=== PATIENT | female | born 1950 | race Caucasian/White ===

== ENCOUNTER 2017-07-19 14:03 | Outpatient (CLI) | payer OTHER ==
--- NOTE | 2017-07-20 15:20 | Mammography Report ---
DIGITAL SCREENING MAMMOGRAM: 07/19/2017 CLINICAL INDICATION: A 66-year-old, for screening. COMPARISON: Report of a previous mammogram 09/26/2005. Films have been purged. TECHNIQUE: Routine CC and MLO projections were obtained of the breasts. FINDINGS: The breasts demonstrate fatty replacement bilaterally. Coarse and punctate, typically benign calcifications are present. No suspicious masses, clustered microcalcifications or regions of architectural distortion are identified. IMPRESSION: BENIGN FINDINGS. RECOMMENDATION: ROUTINE ANNUAL SCREENING UNLESS OTHERWISE CLINICALLY INDICATED. BIRADS CATEGORY 2-BENIGN FINDINGS. STANDARD QUALIFYING STATEMENTS: 1. This examination was reviewed with the aid of Computer-Aided Detection (CAD). 2. A negative or benign imaging report should not delay biopsy if clinically suspicious findings are present. Consider surgical consultation if warranted. More than 5% of cancers are not identified by imaging. 3. Dense breasts may obscure an underlying neoplasm. TD: 07/20/2017 15:19
== END 2017-07-19 14:04 | disposition home or self-care (01) ==
LOC: DI 14:03
PROVIDERS: ATTEND Family Medicine
DX: Z12.31 Encounter for screening mammogram for malignant neoplasm of breast (principal)
CPT/HCPCS: 77067

== ENCOUNTER 2017-08-14 14:26 | Outpatient (CLI) | payer OTHER ==
--- NOTE | 2017-08-15 08:40 | XRAY Report ---
CERVICAL SPINE: 08/14/2017 COMPARISON: No comparison. INDICATION: Neck and low back pain. TECHNIQUE: Six views. FINDINGS: C7 and T1 are not well visualized. Alignment appears otherwise normal. There is no abnormal translation with flexion and extension. There is moderate narrowing of the C5-C6 and C6-C7 disk spaces. There are small anterior osteophytes. Normal alignment. No evidence of acute fracture. Prevertebral soft tissues appear unremarkable. The lateral masses are symmetric. IMPRESSION: MODERATE CERVICAL SPONDYLOSIS. TD: 08/15/2017 08:39 [facility]
--- NOTE | 2017-08-15 08:41 | XRAY Report ---
LUMBAR SPINE: 08/14/2017 COMPARISON: No comparison. INDICATION: Neck and low back pain. TECHNIQUE: Two views. FINDINGS: Normal alignment. No evidence of acute fracture. There are small anterior osteophytes. There is mild disk space narrowing at L4- L5. IMPRESSION: MILD LUMBAR SPONDYLOSIS. TD: 08/15/2017 08:40 [facility]
== END 2017-08-14 14:27 | disposition home or self-care (01) ==
LOC: DI.S 14:26
PROVIDERS: ATTEND Chiropractor
DX: M47.892 Other spondylosis, cervical region (principal); M47.896 Other spondylosis, lumbar region
CPT/HCPCS: 72052; 72100